=== PATIENT | male | born 1950 | race Caucasian/White ===

== ENCOUNTER 2017-07-27 12:13 | Emergency (ER) | payer OTHER ==
[2017-07-27 12:18] VITALS: BP 156/83; PULSE 78; TEMP 98; BMI 36.9
[2017-07-27] MEDS ORDERED: NAPROXEN 500 MG TABLET (FP) PO ONE (12:35)
[2017-07-27] MEDS ORDERED: NAPROXEN 500 MG TABLET (FP) ONE (12:40)
--- NOTE | 2017-07-27 12:40 | PDOC ---
History of Present Illness - General Chief Complaint: Pain, Acute Stated Complaint: RIGHT HIP PAIN Time Seen by Provider: 07/27/17 12:29 History Source: Patient, Significant Other Exam Limitations: No Limitations - History of Present Illness Initial Comments: 07/27/17 13:19 67 year old male with no past medical history presents with right buttocks pain s/p fall. Yesterday, pt slipped and fell and hit his R buttocks. No other trauma or injury. Developed a bruise approx 3x3 cm in posterior lateral R buttocks. Pt able to ambulate but with discomfort. Denies numbness, weakness. Past History - Past Medical History Allergies/Adverse Reactions: Allergies Allergy/AdvReac Type Severity Reaction Status Date / Time No Known Allergies Allergy Verified 07/27/17 12:14 Home Medications: Ambulatory Orders Naproxen [Naprosyn -] 500 mg PO BID PRN #14 tablet 07/27/17 CVA: No COPD: No HTN: Yes Hypercholesterolemia: Yes - Suicide/Smoking/Psychosocial Hx Smoking History: Former smoker Have you smoked in the past 12 months: No Information on smoking cessation initiated: No Hx Alcohol Use: No Drug/Substance Use Hx: No Substance Use Type: None Review of Systems - Review of Systems Able to Perform ROS?: Yes Comments:: 07/27/17 13:20 GENERAL/CONSTITUTIONAL: No fever, weakness. HEAD, EYES, EARS, NOSE AND THROAT: No change in vision. No ear pain or discharge. No sore throat. CARDIOVASCULAR: No chest pain or shortness of breath. RESPIRATORY: No cough, wheezing, or hemoptysis. GASTROINTESTINAL: No abdominal pain, nausea, vomiting, diarrhea, or decreased PO intolerance. GENITOURINARY: No dysuria, frequency, or change in urination. MUSCULOSKELETAL: + Right buttocks pain SKIN: No rash NEUROLOGIC: No headache, vertigo, loss of consciousness, or change in strength/ sensation. ENDOCRINE: No increased thirst. No abnormal weight change. HEMATOLOGIC/LYMPHATIC: No anemia, easy bleeding, or history of blood clots. ALLERGIC/IMMUNOLOGIC: No hives or skin allergy. *Physical Exam - Vital Signs Last Vital Signs Temp Pulse Resp BP Pulse Ox 98 F 78 18 156/83 100 07/27/17 12:13 07/27/17 12:13 07/27/17 12:13 07/27/17 12:13 07/27/17 12:13 - Physical Exam Comments: 07/27/17 13:20 GENERAL: Awake, alert, and fully oriented, in no acute distress. HEAD: No signs of trauma EYES: PERRLA, EOMI, sclera anicteric, conjunctiva clear ENT: Auricles normal inspection, hearing grossly normal NECK: Normal ROM, supple, ABDOMEN: Soft, nontender, normoactive bowel sounds. No guarding, no rebound. No masses EXTREMITIES: Normal range of motion, no edema. No clubbing or cyanosis. No cords, erythema, or tenderness RLE with sensation intact throughout. Able to ambulate but with pain in the buttocks, worse with palpation of R buttocks over the 3x3 cm posterior lateral ecchymosis. No bony tenderness elicited. NEUROLOGICAL: Cranial nerves II through XII grossly intact. Normal speech, normal gait SKIN: Warm, Dry, normal turgor, no rashes or lesions noted. ED Treatment Course - RADIOLOGY Radiology Studies Ordered: Category Date Time Status HIP & PELVIS-RIGHT [RAD] Stat Radiology 07/27/17 12:35 Ordered Medical Decision Making - Medical Decision Making 07/27/17 13:21 Vital Signs Temp Pulse Resp BP Pulse Ox 98 F 78 18 156/83 100 07/27/17 12:13 07/27/17 12:13 07/27/17 12:13 07/27/17 12:13 07/27/17 12:13 R hip xray negative for fractures. Likely contusion. Supportive care Follow up with PMD. I discussed the physical exam findings, ancillary test results and final diagnoses with the patient. I answered all of the patient's questions. The patient was satisfied with the care received and felt comfortable with the discharge plan and treatment plan. The patient will call their primary care physician within 24 hours to arrange follow-up and will return to the Emergency Department with any new, persistant or worsening symptoms. *DC/Admit/Observation/Transfer Diagnosis at time of Disposition: Contusion, hip Qualifiers: Encounter type: initial encounter Laterality: right Qualified Code(s): S70.01XA - Contusion of right hip, initial encounter - Discharge Dispostion Disposition: HOME Condition at time of disposition: Stable - Prescriptions Prescriptions: Naproxen [Naprosyn -] 500 mg PO BID PRN #14 tablet PRN Reason: Pain - Referrals Referrals: Alex Canseco MD [Staff Physician] - - Patient Instructions Printed Discharge Instructions: DI for Contusion Additional Instructions: Your xray is negative for fracture. It may take several days to possibly weeks before your symptoms resolve. Please follow up with your doctor. Take the naproxen every 12 hours as needed for pain. - Post Discharge Activity Forms/Work/School Notes: Back to Work
== END 2017-07-27 13:35 | disposition home or self-care (01) ==
LOC: FER 12:13
DX: S70.01XA Contusion of right hip, initial encounter (principal); W18.39XA Other fall on same level, initial encounter; Y93.89 Activity, other specified; Y92.9 Unspecified place or not applicable; I10 Essential (primary) hypertension; E78.00 Pure hypercholesterolemia, unspecified; Z87.891 Personal history of nicotine dependence
CPT/HCPCS: 73523-TC; 99282-25